=== PATIENT | male | born 1995 | race Caucasian/White ===

== ENCOUNTER 2017-05-07 06:30 | Emergency (ER) | payer SELFPAY ==
[2017-05-07] MEDS ORDERED: Albuterol/Ipratropium NEB.SOL* Albuterol 2.5 MG/Ipratropium 0.5 MG 3 ML INH ONE (06:48)
[2017-05-07] MEDS ORDERED: predniSONE TAB* 20 MG PO ONE (07:47)
[2017-05-07] MEDS ORDERED: Ketorolac INJ* 60 MG/2 ML VIAL IM ONE (07:47)
[2017-05-07 08:13] LABS: Hematocrit 46 % (42-52); Hemoglobin 15.9 g/dl (14.0-18.0); Mean Corpuscular HGB Conc 34 g/dl (31-36); Mean Corpuscular Hemoglobin 29 pg (27-31); Mean Corpuscular Volume 85 fL (80-94); Mean Platelet Volume 9 um3 (7.4-10.4); Red Blood Count 5.49 10^6/ul (4.0-5.4); Red Cell Distribution Width 13 % (10.5-15); White Blood Count 9.6 10^3/ul (3.5-10.8)
[2017-05-07 08:27] LABS: Albumin 4.2 g/dL (3.2-5.2); C Reactive Protein 10.66 mg/L (< 5.00); Calcium 9.6 mg/dL (8.6-10.3); EGFR African American 122.5 (>60); EGFR Non-African American 95.3 (>60); Globulin 3.2 g/dL (2-4); Potassium 3.7 mmol/L (3.5-5.0); Total Protein 7.4 g/dL (6.4-8.9)
--- NOTE | 2017-05-07 08:29 | RAD ---
INDICATION: Shortness of breath. COMPARISON: There are no prior studies available for comparison. TECHNIQUE: Dual-energy PA and lateral views of the chest were obtained. FINDINGS: The heart is within normal limits in size. Mediastinal and hilar contours appear within normal limits. The lungs are clear. No pleural effusion is present. IMPRESSION: NO EVIDENCE FOR ACTIVE CARDIOPULMONARY DISEASE.
[2017-05-07 08:52] VITALS: BP 145/76
--- NOTE | 2017-05-07 18:11 | ED ---
Danni Silverman Alfonso, scribed for Triston Whitehead MD on 05/07/17 at 0746 . Shortness of Breath - HPI Summary HPI Summary: This patient is a 21 year old M presenting to [facility] with a chief complaint of SOB since a few days ago. The patient rates the pain 5/10 in severity. Symptoms aggravated by nothing. Symptoms alleviated by breathing treatment. Patient reports productive cough, sinus congestion, rhinorrhea, throat tightness, throbbing occipital headache, heart burn (aggravated by lying down), chest pain , nausea, and dizziness. Patient denies fever, vomiting, and diarrhea. - History of Current Complaint Chief Complaint: EDUpperRespComplaint Time Seen by Provider: 05/07/17 07:31 Hx Obtained From: Patient Onset/Duration: Gradual Onset, Lasting Days, Resolved Timing: Constant Aggrevating Factors: Nothing Alleviating Factors: Other - breathing treatment Associated Signs & Symptoms: Chest Pain w/Cough, Dizzy - Allergy/Home Medications Allergies/Adverse Reactions: Allergies Allergy/AdvReac Type Severity Reaction Status Date / Time Sulfa Antibiotics Allergy burning/redness Verified 05/07/17 06:47 in eye PMH/Surg Hx/FS Hx/Imm Hx Endocrine/Hematology History: Denies: Hx Diabetes, Hx Thyroid Disease Cardiovascular History: Denies: Hx Hypertension Respiratory History: Reports: Hx Asthma Denies: Hx Chronic Obstructive Pulmonary Disease (COPD) GI History: Denies: Hx Ulcer Opthamlomology History: Denies: Hx Legally Blind EENT History: Denies: Hx Deafness - Immunization History Date of Influenza Vaccine: 03/2017 Infectious Disease History: No Infectious Disease History: Denies: Hx Clostridium Difficile, Hx Hepatitis, Hx Human Immunodeficiency Virus (HIV), Hx of Known/Suspected MRSA, Hx Shingles, Hx Tuberculosis, History Other Infectious Disease, Traveled Outside the [place] in Last 30 Days - Family History Known Family History: Negative: Respiratory Disease - Social History Alcohol Use: None Hx Substance Use: No Substance Use Type: Reports: None Hx Tobacco Use: No Smoking Status (MU): Never Smoked Tobacco Review of Systems Negative: Fever Positive: Other - sinus congestion, rhinorrhea, throat tightness Positive: Chest Pain Positive: Shortness Of Breath, Cough Positive: Nausea, Other - heart burn (aggravated by lying down). Negative: Vomiting, Diarrhea Neurological: Other - Dizziness Positive: Headache All Other Systems Reviewed And Are Negative: Yes Physical Exam - Summary Physical Exam Summary: VITAL SIGNS: Reviewed. GENERAL: Patient is a well-developed and nourished male who is lying comfortable in the stretcher. Patient is not in any acute respiratory distress. HEAD AND FACE: No signs of trauma. No ecchymosis, hematomas or skull depressions. No sinus tenderness. EYES: PERRLA, EOMI x 2, No injected conjunctiva, no nystagmus. EARS: Hearing grossly intact. Ear canals and tympanic membranes are within normal limits. MOUTH: Erythematous pharynx and larynx. NECK: Supple, trachea is midline, no adenopathy, no JVD, no carotid bruit, no c- spine tenderness, neck with full ROM. CHEST: Symmetric, no tenderness at palpation LUNGS: Clear to auscultation bilaterally. No crackles. No wheezing after two duonebs. CVS: Regular rate and rhythm, S1 and S2 present, no murmurs or gallops appreciated. ABDOMEN: Soft, non-tender. No signs of distention. No rebound no guarding, and no masses palpated. Bowel sounds are normal. EXTREMITIES: FROM in all major joints, no edema, no cyanosis or clubbing. NEURO: Alert and oriented x 3. No acute neurological deficits. Speech is normal and follows commands. SKIN: Dry and warm Triage Information Reviewed: Yes Vital Signs On Initial Exam: Initial Vitals Temp Pulse Resp BP Pulse Ox 98.3 F 97 20 137/85 98 05/07/17 06:33 05/07/17 06:33 05/07/17 06:33 05/07/17 06:33 05/07/17 06:33 Vital Signs Reviewed: Yes Diagnostics - Vital Signs Vital Signs Temp Pulse Resp BP Pulse Ox 05/07/17 07:00 80 146/84 96 05/07/17 06:53 91 125/87 97 05/07/17 06:43 96 97 05/07/17 06:33 98.3 F 97 20 137/85 98 - Laboratory Lab Results: Lab Results 05/07/17 05/07/17 05/07/17 Range/Units 08:04 08:04 08:13 WBC 9.6 (3.5-10.8) 10^3/ul RBC 5.49 H (4.0-5.4) 10^6/ul Hgb 15.9 (14.0-18.0) g/dl Hct 46 (42-52) % MCV 85 (80-94) fL MCH 29 (27-31) pg MCHC 34 (31-36) g/dl RDW 13 (10.5-15) % Plt Count 163 (150-450) 10^3/ul MPV 9 (7.4-10.4) um3 Neut % (Auto) 73.2 (38-83) % Lymph % (Auto) 17.6 L (25-47) % [place] % (Auto) 7.7 (1-9) % Eos % (Auto) 1.1 (0-6) % Baso % (Auto) 0.4 (0-2) % Absolute Neuts (auto) 7.0 (1.5-7.7) 10^3/ul Absolute Lymphs (auto) 1.7 (1.0-4.8) 10^3/ul Absolute Monos (auto) 0.7 (0-0.8) 10^3/ul Absolute Eos (auto) 0.1 (0-0.6) 10^3/ul Absolute Basos (auto) 0 (0-0.2) 10^3/ul Absolute Nucleated RBC 0.01 10^3/ul Nucleated RBC % 0.1 Sodium 135 (133-145) mmol/L Potassium 3.7 (3.5-5.0) mmol/L Chloride 103 (101-111) mmol/L Carbon Dioxide 26 (22-32) mmol/L Anion Gap 6 (2-11) mmol/L BUN 14 (6-24) mg/dL Creatinine 1.00 (0.67-1.17) mg/dL Est GFR ( Amer) 122.5 (>60) Est GFR (Non-Af Amer) 95.3 (>60) BUN/Creatinine Ratio 14.0 (8-20) Glucose 127 H (70-100) mg/dL Calcium 9.6 (8.6-10.3) mg/dL Total Bilirubin 1.00 (0.2-1.0) mg/dL AST 16 (13-39) U/L ALT 20 (7-52) U/L Alkaline Phosphatase 87 (34-104) U/L C-Reactive Protein 10.66 H (< 5.00) mg/L Total Protein 7.4 (6.4-8.9) g/dL Albumin 4.2 (3.2-5.2) g/dL Globulin 3.2 (2-4) g/dL Albumin/Globulin Ratio 1.3 (1-3) Influenza A (Rapid) (Negative) Influenza B (Rapid) (Negative) Group A Strep Rapid Negative (Negative) 05/07/17 Range/Units 08:15 WBC (3.5-10.8) 10^3/ul RBC (4.0-5.4) 10^6/ul Hgb (14.0-18.0) g/dl Hct (42-52) % MCV (80-94) fL MCH (27-31) pg MCHC (31-36) g/dl RDW (10.5-15) % Plt Count (150-450) 10^3/ul MPV (7.4-10.4) um3 Neut % (Auto) (38-83) % Lymph % (Auto) (25-47) % [place] % (Auto) (1-9) % Eos % (Auto) (0-6) % Baso % (Auto) (0-2) % Absolute Neuts (auto) (1.5-7.7) 10^3/ul Absolute Lymphs (auto) (1.0-4.8) 10^3/ul Absolute Monos (auto) (0-0.8) 10^3/ul Absolute Eos (auto) (0-0.6) 10^3/ul Absolute Basos (auto) (0-0.2) 10^3/ul Absolute Nucleated RBC 10^3/ul Nucleated RBC % Sodium (133-145) mmol/L Potassium (3.5-5.0) mmol/L Chloride (101-111) mmol/L Carbon Dioxide (22-32) mmol/L Anion Gap (2-11) mmol/L BUN (6-24) mg/dL Creatinine (0.67-1.17) mg/dL Est GFR ( Amer) (>60) Est GFR (Non-Af Amer) (>60) BUN/Creatinine Ratio (8-20) Glucose (70-100) mg/dL Calcium (8.6-10.3) mg/dL Total Bilirubin (0.2-1.0) mg/dL AST (13-39) U/L ALT (7-52) U/L Alkaline Phosphatase (34-104) U/L C-Reactive Protein (< 5.00) mg/L Total Protein (6.4-8.9) g/dL Albumin (3.2-5.2) g/dL Globulin (2-4) g/dL Albumin/Globulin Ratio (1-3) Influenza A (Rapid) Negative (Negative) Influenza B (Rapid) Negative (Negative) Group A Strep Rapid (Negative) Result Diagrams: 05/07/17 08:04 05/07/17 08:04 Lab Statement: Any lab studies that have been ordered have been reviewed, and results considered in the medical decision making process. - Radiology CXR Radiology Interpretation Completed By: Radiologist - NO EVIDENCE FOR ACTIVE CARDIOPULMONARY DISEASE. ED physician has reviewed this radiology report and agrees. Course/Dx - Course Assessment/Plan: This patient is a 21 year old M presenting to [facility] with a chief complaint of SOB since a few days ago. The patient rates the pain 5/10 in severity. Symptoms aggravated by nothing. Symptoms alleviated by breathing treatment. Patient reports productive cough, sinus congestion, rhinorrhea, throat tightness, throbbing occipital headache, heart burn (aggravated by lying down), chest pain, nausea, and dizziness. Patient denies fever, vomiting, and diarrhea. CXR reveals, per radiologist, NO EVIDENCE FOR ACTIVE CARDIOPULMONARY DISEASE. ED physician has reviewed this radiology report and agrees. In the ED course the patient was given prednisone, Toradol, and two Duonebs. The symptoms improved and completely resolved in the ED course. His O2 saturation is 100 at time of discharge. Patient will be discharged to home with prescription for prednisone and Flonase, a work note, and follow up from PCP. The patient is agreeable with this plan. The patient is hemodynamically stable, alert and oriented x3. - Diagnoses Provider Diagnoses: Asthma exacerbation, URI (upper respiratory infection) Discharge - Discharge Plan Condition: Stable Disposition: HOME Prescriptions: Fluticasone NASAL SPRAY 50MCG* [Flonase NASAL SPRAY 50MCG*] 2 spray BOTH NARES DAILY #1 btl predniSONE TAB* [Deltasone TAB*] 40 mg PO DAILY #8 tab Patient Education Materials: Asthma (ED) Forms: *Work Release Referrals: [facility] [place] PHYSICIAN REFERRAL [Outside] - 3 Days Additional Instructions: RETURN TO THE EMERGENCY DEPARTMENT FOR CHANGING OR WORSENING SYMPTOMS. The documentation as recorded by the Danni duran Alfonso accurately reflects the service I personally performed and the decisions made by , Triston Whitehead MD.
== END 2017-05-07 10:15 | disposition home or self-care (01) ==
LOC: ED 06:30
DX: J45.901 Unspecified asthma with (acute) exacerbation (principal); J06.9 Acute upper respiratory infection, unspecified
CPT/HCPCS: 36415; 71020; 80053; 85025; 86140; 87502; 87651; 96372; 99282; A9270-GY; J1885; J7512

== ENCOUNTER 2019-02-09 19:33 | Emergency (ER) | payer OTHER ==
[2019-02-09 19:52] VITALS: BP 166/78
[2019-02-09] MEDS ORDERED: Al Hydrox/Mg Hydrox/Simet LIQ* 30 ML UDC PO ONE (20:13)
--- NOTE | 2019-02-09 20:14 | UC ---
Abdominal Pain Male HPI - HPI Summary HPI Summary: 23-year-old male comes in with chief complaint of right upper quadrant abdominal pain. Pain started about 3 days ago. I worse it's 8 out of 10. No change in bowel or bladder no fevers or chills no rash. Right now the pains about a 4 out of 10. It does radiate across the upper abdomen. Does have a history of GERD. He does not believe eating makes the pain worse or better. - History of Current Complaint Chief Complaint: UCAbdominalPain Stated Complaint: ABDOMINAL PAIN Time Seen by Provider: 02/09/19 20:00 Pain Intensity: 5 - Allergies/Home Medications Allergies/Adverse Reactions: Allergies Allergy/AdvReac Type Severity Reaction Status Date / Time MS Sulfa Antibiotics Allergy burning/redness Verified 05/07/17 06:47 [Sulfa Antibiotics] in eye Sulfa (Sulfonamide Allergy burning/redness Verified 02/09/19 19:45 Antibiotics) in eye PMH/Surg Hx/FS Hx/Imm Hx Previously Healthy: Yes - Surgical History Surgical History: None - Family History Known Family History: Negative: Respiratory Disease - Social History Alcohol Use: Occasionally Substance Use Type: None Smoking Status (MU): Never Smoked Tobacco - Immunization History Vaccination Up to Date: Yes Review of Systems All Other Systems Reviewed And Are Negative: Yes Constitutional: Positive: Negative Skin: Positive: Negative Eyes: Positive: Negative ENT: Positive: Negative Respiratory: Positive: Negative Cardiovascular: Positive: Negative Gastrointestinal: Positive: Abdominal Pain Genitourinary: Positive: Negative Motor: Positive: Negative Neurovascular: Positive: Negative Musculoskeletal: Positive: Negative Neurological: Positive: Negative Psychological: Positive: Negative Is Patient Immunocompromised?: No Physical Exam Triage Information Reviewed: Yes Appearance: Well-Appearing, Pain Distress - MILD WITH RUQ PALPATION Vital Signs: Initial Vital Signs Temp 99.4 F 02/09/19 19:46 Pulse 105 02/09/19 19:46 Resp 18 02/09/19 19:46 BP 166/78 02/09/19 19:46 Pulse Ox 99 02/09/19 19:46 Vital Signs Reviewed: Yes Eye Exam: Normal Eyes: Positive: Conjunctiva Clear Neck: Positive: Supple Respiratory: Positive: Lungs clear, Normal breath sounds, No respiratory distress Cardiovascular: Positive: RRR Abdomen Description: Positive: Other: - Tender to palpation in the right upper quadrant.. Negative: CVA Tenderness (R), CVA Tenderness (L) Bowel Sounds: Positive: Present Musculoskeletal: Positive: Strength Intact, ROM Intact Neurological: Positive: Alert Psychological: Positive: Age Appropriate Behavior Skin Exam: Normal - No rash. Abd Pain Male Course/Dx - Course Course Of Treatment: With the patient's right upper quadrant abdominal pain her recommended further evaluation in the emergency department as in clinic we do not have ultrasound at this time and we do not have labs that returned in a timely fashion. - Differential Dx/Clinical Impression Provider Diagnosis: Right upper quadrant abdominal pain Discharge ED - Sign-Out/Discharge Documenting (check all that apply): Patient Departure All imaging exams completed and their final reports reviewed: No Studies - Discharge Plan Condition: Stable Disposition: HOME-RECOMMEND TO ED Prescriptions: Omeprazole 20 mg PO BID #30 capsule. Patient Education Materials: Acute Abdominal Pain (ED) Referrals: [facility] [place] [facility]ERR[facility] [Outside] Additional Instructions: GO DIRECTLY TO THE EMERGENCY DEPARTMENT FOR FURTHER EVALUATION OF YOUR RIGHT UPPER ABDOMINAL PAIN. - Billing Disposition and Condition Condition: STABLE Disposition: Home-Recommend to ED
== END 2019-02-09 20:26 | disposition home health service (06) ==
LOC: UCEAST 19:33
DX: R10.11 Right upper quadrant pain (principal); Z88.2 Allergy status to sulfonamides
CPT/HCPCS: 99202; A9270-GY; G0463

== ENCOUNTER 2019-02-09 20:41 | Emergency (ER) | payer OTHER ==
[2019-02-09 21:54] LABS: ABS Eosinophils 0.1 10^3/ul (0-0.6); ABS Lymphocytes 2.3 10^3/ul (1.0-4.8); ABS Monocytes 0.5 10^3/ul (0-0.8); ABS Neutrophils 4.2 10^3/ul (1.5-7.7); Hematocrit 47 % (42-52); Hemoglobin 16.2 g/dL (14.0-18.0); Lymphocyte % 32.1 %; Mean Corpuscular HGB Conc 35 g/dL (31-36); Mean Corpuscular Hemoglobin 29 pg (27-31); Mean Corpuscular Volume 85 fL (80-94); Mean Platelet Volume 8.9 fL (7.4-10.4); Nucleated Red Blood Cells % 0.2; Platelet Count 209 10^3/uL (150-450); Red Blood Count 5.54 10^6 /uL (4.18-5.48); Red Cell Distribution Width 14 % (10-15)
[2019-02-09 22:09] LABS: Albumin 4.7 g/dL (3.2-5.2); Albumin/Globulin Ratio 1.4 (1-3); BUN/Creatinine Ratio 13.3 (8-20); Calcium 10.2 mg/dL (8.6-10.3); EGFR African American 127.7 (>60); EGFR Non-African American 105.5 (>60); Globulin 3.4 g/dL (2-4); Potassium 4.3 mmol/L (3.5-5.0); Total Bilirubin 0.4 mg/dL (0.2-1.0); Total Protein 8.1 g/dL (6.4-8.9)
--- NOTE | 2019-02-09 22:51 | ED ---
Abdominal Pain/Male - HPI Summary HPI Summary: Pt is a 23 y/o M presenting to the ED from with a chief complaint of RUQ abd pain initially onset 02/06/19 that has been constant at 3/10. He states he was sleeping on his couch and thinks he may have just slept on it wrong, but was concerned about his gallbladder and wanted to send him here for US and further workup. He reports pain worsened by sitting down, and alleviated somewhat by Tylenol. He denies difficulty urinating, fever, N/V/D, or decreased appetite. - History of Current Complaint Chief Complaint: EDAbdPain Stated Complaint: ABD PAIN PER PT Time Seen by Provider: 02/09/19 21:57 Hx Obtained From: Patient Onset/Duration: Gradual Onset Timing: Constant, Lasting Days Severity Initially: Mild Severity Currently: Mild Pain Intensity: 3 Pain Scale Used: 0-10 Numeric Location: Discrete At: RUQ Radiates: No Character: Sharp Aggravating Factor(s): Other: - sitting Alleviating Factor(s): Other: - tylenol Associated Signs And Symptoms: Negative: Fever, Urinary Symptoms, Decreased Appetite, Nausea, Vomiting, Diarrhea - Allergies/Home Medications Allergies/Adverse Reactions: Allergies Allergy/AdvReac Type Severity Reaction Status Date / Time Sulfa (Sulfonamide Allergy burning/redness Verified 02/09/19 21:04 Antibiotics) in eye PMH/Surg Hx/FS Hx/Imm Hx Previously Healthy: Yes Endocrine/Hematology History: Denies: Hx Diabetes, Hx Thyroid Disease Cardiovascular History: Denies: Hx Hypertension Respiratory History: Reports: Hx Asthma Denies: Hx Chronic Obstructive Pulmonary Disease (COPD) GI History: Denies: Hx Ulcer Sensory History: Denies: Hx Legally Blind, Hx Deafness Opthamlomology History: Denies: Hx Legally Blind - Immunization History Date of Influenza Vaccine: 03/2017 Infectious Disease History: No Infectious Disease History: Denies: Hx Clostridium Difficile, Hx Hepatitis, Hx Human Immunodeficiency Virus (HIV), Hx of Known/Suspected MRSA, Hx Shingles, Hx Tuberculosis, History Other Infectious Disease, Traveled Outside the [place] in Last 30 Days - Family History Known Family History: Negative: Respiratory Disease - Social History Alcohol Use: Occasionally Hx Substance Use: No Substance Use Type: Reports: None Hx Tobacco Use: No Smoking Status (MU): Never Smoked Tobacco Review of Systems Negative: Fever, Other - decreased appetite Positive: Abdominal Pain. Negative: Vomiting, Diarrhea, Nausea Positive: no symptoms reported All Other Systems Reviewed And Are Negative: Yes Physical Exam - Summary Physical Exam Summary: Appearance: Well-appearing, Well-nourished, lying in bed comfortably Skin: Warm, dry, no obvious rash Eyes: sclera anicteric, no conjunctival pallor ENT: mucous membranes moist, pharynx appears normal Neck: Supple, nontender Respiratory: Clear to auscultation, no signs of respiratory distress Cardiovascular: Normal S1, S2. No murmurs. Normal distal pulses in tibial and radial bilaterally. Abdomen: Soft, mild tenderness in the RUQ just below the R costal margin, normal active bowel sounds present Musculoskeletal: Normal, Strength/ROM Intact Neurological: A&Ox3, awake and alert, mentation is normal, speech is fluent and appropriate Psychiatric: affect is normal, does not appear anxious or depressed Triage Information Reviewed: Yes Vital Signs On Initial Exam: Initial Vitals Temp Pulse Resp BP Pulse Ox 99.2 F 70 16 141/91 98 02/09/19 21:00 02/09/19 21:00 02/09/19 21:00 02/09/19 21:00 02/09/19 21:00 Vital Signs Reviewed: Yes Diagnostics - Vital Signs Vital Signs Temp Pulse Resp BP Pulse Ox 02/09/19 21:00 99.2 F 70 16 141/91 98 - Laboratory Lab Results: Lab Results 02/09/19 02/09/19 Range/Units 21:43 21:43 WBC 7.0 (3.5-10.8) 10^3/uL RBC 5.54 H (4.18-5.48) 10^6 /uL Hgb 16.2 (14.0-18.0) g/dL Hct 47 (42-52) % MCV 85 (80-94) fL MCH 29 (27-31) pg MCHC 35 (31-36) g/dL RDW 14 (10-15) % Plt Count 209 (150-450) 10^3/uL MPV 8.9 (7.4-10.4) fL Neut % (Auto) 59.3 % Lymph % (Auto) 32.1 % [place] % (Auto) 7.1 % Eos % (Auto) 1.0 % Baso % (Auto) 0.5 % Absolute Neuts (auto) 4.2 (1.5-7.7) 10^3/ul Absolute Lymphs (auto) 2.3 (1.0-4.8) 10^3/ul Absolute Monos (auto) 0.5 (0-0.8) 10^3/ul Absolute Eos (auto) 0.1 (0-0.6) 10^3/ul Absolute Basos (auto) 0.0 (0-0.2) 10^3/ul Absolute Nucleated RBC 0.0 10^3/ul Nucleated RBC % 0.2 Sodium 138 (135-145) mmol/L Potassium 4.3 (3.5-5.0) mmol/L Chloride 105 (101-111) mmol/L Carbon Dioxide 28 (22-32) mmol/L Anion Gap 5 (2-11) mmol/L BUN 12 (6-24) mg/dL Creatinine 0.90 (0.67-1.17) mg/dL Est GFR ( Amer) 127.7 (>60) Est GFR (Non-Af Amer) 105.5 (>60) BUN/Creatinine Ratio 13.3 (8-20) Glucose 86 (70-100) mg/dL Calcium 10.2 (8.6-10.3) mg/dL Total Bilirubin 0.40 (0.2-1.0) mg/dL AST 23 (13-39) U/L ALT 28 (7-52) U/L Alkaline Phosphatase 80 (34-104) U/L Total Protein 8.1 (6.4-8.9) g/dL Albumin 4.7 (3.2-5.2) g/dL Globulin 3.4 (2-4) g/dL Albumin/Globulin Ratio 1.4 (1-3) Lipase 22 (11.0-82.0) U/L Result Diagrams: 02/09/19 21:43 02/09/19 21:43 Lab Statement: Any lab studies that have been ordered have been reviewed, and results considered in the medical decision making process. - Ultrasound Gallbladder US Ultrasound Interpretation Completed By: Radiologist Summary of Ultrasound Findings: Essentially unremarkable sonography of the RUQ area. No gallstones are appreciated. No biliary dilatation is evident. The sonographic Causey's sign is reported to be (-). No abnormal fluid collections are evident. ED physician has reviewed this report. Abdominal Pain Male Course/Dx - Course Course Of Treatment: Pt is a 23 y/o M presenting to the ED from with a chief complaint of RUQ abd pain initially onset 02/06/19 that has been constant at / 10. was concerned about his gallbladder and wanted to send him here for US and further workup. He reports pain worsened by sitting down, and alleviated somewhat by Tylenol. He denies difficulty urinating, fever, N/V/D, or decreased appetite. On exam, there is mild RUQ tenderness under the R costal margin, but he is otherwise nml. Gallbladder US shows: Essentially unremarkable sonography of the RUQ area. No gallstones are appreciated. No biliary dilatation is evident. The sonographic Causey's sign is reported to be (-). No abnormal fluid collections are evident. Pt's lab results are WNL. Pt will be d/c'ed with dx of acute abd pain. He is stable and agreeable with this plan. - Diagnoses Provider Diagnoses: Acute abdominal pain Discharge ED - Sign-Out/Discharge Documenting (check all that apply): Patient Departure Patient Received Moderate/Deep Sedation with Procedure: No - Discharge Plan Condition: Good Disposition: HOME Patient Education Materials: Acute Abdominal Pain (ED) Referrals: [facility] [Outside] - 3 Days (if no better) Additional Instructions: The blood tests and ultrasound study did not show any sign of a gall bladder or other internal problem. If your pain doesn't seem to be resolving by Monday I would recommend checking with your regular doctor or the [facility]. - Billing Disposition and Condition Condition: GOOD Disposition: Home - Attestation Statements Document Initiated by Gageibcalista: Yes Documenting Scribe: Romy Church Provider For Whom Cu[place] is Documenting (Include Credential): Lázaro Zepeda MD. Scribe Attestation: Romy Silverman scribed for Lázaro Zepeda MD. on 02/10/19 at 1846. Scribe Documentation Reviewed: Yes Provider Attestation: The documentation as recorded by the scribe, Romy Church accurately reflects the service I personally performed and the decisions made by me, Lázaro Zepeda MD. Status of Scribe Document: Viewed
[2019-02-09 23:04] LABS: Urine Appearance Clear; Urine Bilirubin Negative (Negative); Urine Blood Negative (Negative); Urine Color Yellow; Urine Glucose Negative (Negative); Urine Ketones Negative (Negative); Urine Nitrite Negative (Negative); Urine Protein Negative (Negative); Urine Specific Gravity 1.024 (1.010-1.030); Urine Urobilinogen Negative (Negative)
[2019-02-09 23:30] VITALS: BP 148/86
== END 2019-02-09 23:28 | disposition home or self-care (01) ==
LOC: ED 20:41
DX: R10.11 Right upper quadrant pain (principal); Z88.2 Allergy status to sulfonamides; J45.909 Unspecified asthma, uncomplicated
CPT/HCPCS: 36415; 76705; 80053; 81003; 83690; 85025; 99282